=== PATIENT | female | born 1980 | race Caucasian/White ===

== ENCOUNTER 2019-08-07 19:25 | Emergency (ER) | payer BC ==
[2019-08-07 19:38] VITALS: BP 145/88
--- NOTE | 2019-08-07 20:35 | UC ---
General HPI - HPI Summary HPI Summary: Per receptionist scheduler: "x2 weeks-pain between both breasts more toward the left side, pain comes and goes, taking deep breaths or coughing makes pain worse, lifting left arm causes pain in chest -denies recent illness, no h/o injury" -no recent cough, fevers -here w/ her -pain is over left chest wall and repoducible with deep breath, moving her shuolder, palpation over the specific points of pain. deep breath makes the pain worse. the actions of lying supine and sitting up make it painful. -denies swelling in legs, no recent travel. not on OCP. has menses now. no personal of Fhx DVT. -pain is more frequent and more intense. pain only comes when illicited by cough , laughing, deep breath or moving. max pain 8/10 but only lasts for 2-3 secs at that intensity. -no palpitations/fluttering. no SOB. -denies any heart problems/history. - History of Current Complaint Chief Complaint: UCChestPain Stated Complaint: LEFT LUNG PAIN Time Seen by Provider: 08/07/19 20:06 Hx Last Menstrual Period: 08/05/19 Pain Intensity: 4 - Allergy/Home Medications Allergies/Adverse Reactions: Allergies Allergy/AdvReac Type Severity Reaction Status Date / Time No Known Allergies Allergy Verified 08/07/19 19:38 PMH/Surg Hx/FS Hx/Imm Hx Previously Healthy: Yes - Surgical History Surgical History: Yes Surgery Procedure, Year, and Place: D & C - Family History Known Family History: Positive: Other - no DVT hx - Social History Alcohol Use: Weekly Alcohol Amount: once a week Substance Use Type: None Smoking Status (MU): Never Smoked Tobacco Review of Systems All Other Systems Reviewed And Are Negative: Yes Constitutional: Positive: Negative. Negative: Fever, Chills, Fatigue Skin: Positive: Negative. Negative: Rash, Bruising Eyes: Positive: Negative ENT: Positive: Negative. Negative: Sore Throat, Ear Ache, Nasal Discharge Respiratory: Positive: Negative. Negative: Shortness Of Breath, Cough Cardiovascular: Positive: Chest Pain. Negative: Palpitations Gastrointestinal: Positive: Negative. Negative: Abdominal Pain, Vomiting, Diarrhea, Nausea Genitourinary: Positive: Negative. Negative: Dysuria Motor: Positive: Negative Neurovascular: Positive: Negative Musculoskeletal: Positive: Negative Neurological: Positive: Negative Psychological: Positive: Negative Is Patient Immunocompromised?: No Physical Exam Triage Information Reviewed: Yes Appearance: Well-Appearing, No Pain Distress, Well-Nourished Vital Signs: Initial Vital Signs Temp 98.1 F 08/07/19 19:31 Pulse 80 08/07/19 19:31 Resp 14 08/07/19 19:31 BP 145/88 08/07/19 19:31 Pulse Ox 98 08/07/19 19:31 Eye Exam: Normal Eyes: Positive: Conjunctiva Clear ENT Exam: Normal ENT: Positive: Hearing grossly normal, TMs normal, Uvula midline. Negative: TM bulging, TM dull, TM red, Tonsillar swelling, Tonsillar exudate, Hoarse voice, Sinus tenderness Dental Exam: Normal Neck exam: Normal Neck: Positive: Supple, Nontender, No Lymphadenopathy Respiratory Exam: Normal Respiratory: Positive: Lungs clear, Normal breath sounds, No respiratory distress, No accessory muscle use. Negative: Crackles, Rhonchi, Stridor, Wheezing, Plerual rub Cardiovascular Exam: Normal Cardiovascular: Positive: RRR, Pulses Normal, Brisk Capillary Refill, Other: - + 2 radial, DP/PT pulses b/l Abdominal Exam: Normal Abdomen Description: Positive: Nontender, Soft. Negative: Distended, Guarding, Peritoneal Signs, Pulsatile Mass Musculoskeletal: Positive: Strength Intact, Other: - left chest wall with same reprodcible pain illicted by palpation over left chest wall superior to breast. same pain in same area is caused by deep breath, movement of left shoulder and while lying supine and sitting up Neurological Exam: Normal Psychological Exam: Normal Skin Exam: Normal Course/Dx - Course Course Of Treatment: Discussed differential dx with most likely cause as costochondritis based on exact reproducibility with palpation, deep breath, movement of left shoulder/ arm and with act of lying supine/sitting up. They understand that differential includes PE, cardiac and pericardial effusion. I offered ER for yu barrios with testing NA at and she really does not want to go. I urged her to go to the ER with any worsening pain or lightheadeed/dizziness/SOB. EKG: NSR, no tachy, nml axis. No S1, Q3 inv T 3 waves. no prev to compare. CXR - reviewed by myself - they understand that i am not a radiologist and the images will be officially reviewed by RAD in the morning and they should get a call if there is any discrepancy. They understood me well and are agreeable with the plan. - Differential Dx - Multi-Symptom Differential Diagnoses: Cardiac Ischemia, Other - costochondritis, PE - Diagnoses Provider Diagnosis: Chest pain Discharge ED - Sign-Out/Discharge Documenting (check all that apply): Patient Departure All imaging exams completed and their final reports reviewed: No - Discharge Plan Condition: Stable Disposition: HOME Prescriptions: predniSONE [Prednisone 20 MG TAB] 40 mg PO DAILY 5 Days #10 tablet Patient Education Materials: Costochondritis (ED) Referrals: Arlet Joseph MD [Primary Care Provider] - 1 Day Additional Instructions: -Please go to the ER via 911 with any worsening chest pain, shortness of breath , light headedness or dizziness. Ibuprofen 800mgs every 8 hrs for pain for the next several days to 10 days will help the inflammation as will the prednisone. -We talked about the potential side effects of prednisone including but not limited to increased energy/decreased sleep, stomach upset, irritability, hunger , elevated blood sugars and blood pressures, problems with your adrenal glands and cut off of the blood supply going to your hip. The latter symptoms are more typical of alf or frequent use of steroids. -Your blood pressure is slightly elevated today, this should be followed up on. - Billing Disposition and Condition Condition: STABLE Disposition: Home
== END 2019-08-07 21:03 | disposition home or self-care (01) ==
LOC: UCCORT 19:25
DX: R07.9 Chest pain, unspecified (principal)
CPT/HCPCS: 71046; 93005; 99201; G0463